=== PATIENT | female | born 1955 | race African-American/Black ===

== ENCOUNTER 2017-04-03 10:52 | Emergency (ER) | payer MEDICAID, OTHER ==
[~2017-04-03] VITALS: Ht 170.2 cm; Wt 121.5 kg
[~2017-04-03 10:52] MED LIST: ACET1TAB12 PO; GLIM2TAB2 PO; HYDR25TA PO; LISI-652 PO; METF500T4 PO; METO-298 PO; SIMV40TA2 PO; [UNRECOGNIZED DRUG - CODE] PO
[2017-04-03] MEDS ORDERED: KETOROLAC 30MG/ML VIAL IV STA (11:27)
[2017-04-03] MEDS ORDERED: SODIUM CHLORIDE 0.9% 1,000 ML IV ONE (11:27)
[2017-04-03 11:45] LABS: BASOPHILS % 0.4 % (0.0-2.0); EOSINOPHILS % 1.9 % (0.0-5.0); HEMATOCRIT. 32.5 % (36.0-48.0); HEMOGLOBIN. 10.5 g/dL (12.0-16.0); LYMPHOCYTES % 32.4 % (20.0-50.0); MEAN CORPUSCULAR HEMOGLOBIN 28.6 pg (28.0-32.0); MEAN CORPUSCULAR VOLUME 88.6 fL (81.0-99.0); MEAN PLATELET VOLUME 9.6 fl (7.4-10.4); MONOCYTES % 6.6 % (2.0-8.0); NEUTROPHILS % 58.7 % (40.0-76.0); PLATELET 152 x1000/uL (130-400); RED BLOOD CELL COUNT 3.66 mill/uL (4.2-5.4)
[2017-04-03 11:48] LABS: CHLORIDE 102 mEq/L (98-107)
[2017-04-03 11:51] LABS: INR 1.1; PROTHROMBIN TIME 11.3 sec
[2017-04-03 11:57] LABS: CARBON DIOXIDE 25 mEq/L (21-32)
[2017-04-03 13:24] LABS: CLARITY URINE CLEAR (CLEAR); COLOR URINE YELLOW (YELLOW); GLUCOSE URINE 2+ (NEGATIVE); KETONES URINE NEGATIVE (NEGATIVE); LEUKOCYTE ESTERASE URINE NEGATIVE (NEGATIVE); NITRITE URINE NEGATIVE (NEGATIVE); OCCULT BLOOD URINE NEGATIVE (NEGATIVE); PH URINE 5.5 (4.5-8.0); PROTEIN URINE NEGATIVE (NEGATIVE); SPECIFIC GRAVITY URINE 1.023 (1.005-1.030); UROBILINOGEN URINE 0.2 E.U./dL (0.2-1.0)
[2017-04-03 15:00] VITALS: BP 132/80
== END 2017-04-03 15:24 | disposition home or self-care (01) ==
LOC: ER 12:58
DX: R10.31 Right lower quadrant pain (principal); K76.0 Fatty (change of) liver, not elsewhere classified; K57.90 Diverticulosis of intestine, part unspecified, without perforation or abscess without bleeding; E11.9 Type 2 diabetes mellitus without complications; I10 Essential (primary) hypertension; Z87.828 Personal history of other (healed) physical injury and trauma
CPT/HCPCS: 36415; 74176; 80053; 81001; 83690; 85025; 85610; 96361; 96374; 99285; J1885; J7030

== ENCOUNTER 2017-05-04 13:43 | Inpatient (IN) | payer OTHER ==
[~2017-05-04] VITALS: Ht 170.2 cm; Wt 121.1 kg
[~2017-05-04 13:43] MED LIST changes: -METO-298 PO; +METO-385 PO
[2017-05-04] MEDS ORDERED: SODIUM CHLORIDE 0.9% 10ML VIAL ONE (13:56)
[2017-05-04] MEDS ORDERED: IOHEXOL-300 100 ML BOTTLE ONE (13:56)
[2017-05-04] MEDS ORDERED: ONDANSETRON HCL 4MG/2ML VIAL IV STA (18:58)
[2017-05-04] MEDS ORDERED: MORPHINE SULFATE 4 MG/ML CPJ (NOT FOR IM USE) IV STA (18:58)
[2017-05-04] MEDS ORDERED: SODIUM CHLORIDE 0.9% 1,000 ML IV ONE ×2 (18:58→21:16)
[2017-05-04 19:15] LABS: BASOPHILS % 0.3 % (0.0-2.0); HEMATOCRIT. 31.7 % (36.0-48.0); HEMOGLOBIN. 10.4 g/dL (12.0-16.0); LYMPHOCYTES % 8.8 % (20.0-50.0); MEAN CORPUSCULAR HEMOGLOBIN 28.8 pg (28.0-32.0); MEAN CORPUSCULAR VOLUME 87.5 fL (81.0-99.0); MEAN PLATELET VOLUME 9.5 fl (7.4-10.4); MONOCYTES % 5.3 % (2.0-8.0); NEUTROPHILS % 85.6 % (40.0-76.0); PLATELET 122 x1000/uL (130-400); RED BLOOD CELL COUNT 3.62 mill/uL (4.2-5.4)
[2017-05-04 19:19] LABS: INR 1.2
[2017-05-04 19:27] LABS: CARBON DIOXIDE 24 mEq/L (21-32); CHLORIDE 97 mEq/L (98-107)
[2017-05-04] MEDS ORDERED: ACETAMINOPHEN 325MG TABLET PO ONE (19:30)
[2017-05-04 20:52] LABS: CLARITY URINE CLEAR (CLEAR); COLOR URINE YELLOW (YELLOW); GLUCOSE URINE 2+ (NEGATIVE); KETONES URINE 1+ (NEGATIVE); LEUKOCYTE ESTERASE URINE NEGATIVE (NEGATIVE); NITRITE URINE NEGATIVE (NEGATIVE); OCCULT BLOOD URINE 1+ (NEGATIVE); PH URINE 5.5 (4.5-8.0); PROTEIN URINE 1+ (NEGATIVE); SPECIFIC GRAVITY URINE 1.021 (1.005-1.030); UROBILINOGEN URINE 0.2 E.U./dL (0.2-1.0)
[2017-05-04] MEDS ORDERED: HYDROCODONE/ACETAMINOPHEN 5/325MG TABLET PO ONE (21:15)
[2017-05-05] MEDS ORDERED: KETOROLAC 30MG/ML VIAL IV ONE
[2017-05-05] MEDS ORDERED: SODIUM CHLORIDE 0.9% 1,000 ML IV ONE ×2 (00:07→01:17)
[2017-05-05] MEDS ORDERED: METRONIDAZOLE 500 MG PREMIX 100 ML IV ONE (00:15)
[2017-05-05] MEDS ORDERED: PIPERACILLIN/TAZ 3.375G PREMIX 50 ML IV ONE (00:15)
[2017-05-05 05:00] VITALS: BP 136/82
[2017-05-05] MEDS ORDERED: CEFTRIAXONE SODIUM 1 G/VIAL IV SCH (05:00)
[2017-05-05] MEDS: SODIUM CHLORIDE 0.9% 1,000 ML IV SCH ×2 (06:55→23:06)
[2017-05-05] MEDS: CEFTRIAXONE 1 G PREMIX 50 ML IV SCH (06:55)
[2017-05-05 08:00] VITALS: BP 101/73
[2017-05-05] MEDS: METRONIDAZOLE 500 MG PREMIX 100 ML IV SCH ×2 (10:31→17:58)
[2017-05-05 12:00] VITALS: BP 103/73
[2017-05-05] MEDS ORDERED: DEXTROSE 50% WATER 50ML SYRINGE IV PRN (12:00)
[2017-05-05] MEDS ORDERED: DIPHENHYDRAMINE 50MG/ML VIAL IV PRN (12:00)
[2017-05-05] MEDS ORDERED: IPRATROPIUM/ALBUTEROL 0.5-3(2.5)MG/3ML NEB INH PRN (12:00)
[2017-05-05] MEDS ORDERED: MORPHINE SULFATE 2 MG/ML CPJ (NOT FOR IM USE) IV PRN (12:00)
[2017-05-05] MEDS ORDERED: ONDANSETRON HCL 4MG/2ML VIAL IV PRN (12:00)
[2017-05-05] MEDS: BLOOD SUGAR DIAGNOSTIC STRIP TEST SCH ×3 (13:10→20:02)
[2017-05-05] MEDS: INSULIN LISPRO 100 UNITS/ML SUBCUT SCH ×3 (13:22→23:20)
[2017-05-05] MEDS: HYDROCODONE/ACETAMINOPHEN 5/325MG TABLET PO PRN ×2 (13:25→20:02)
[2017-05-05 16:00] VITALS: BP 105/76
[2017-05-05] MEDS: ACETAMINOPHEN 325MG TABLET PO PRN (17:58)
[2017-05-05] MEDS: MORPHINE SULFATE 4 MG/ML CPJ (NOT FOR IM USE) IV PRN ×2 (17:59→23:09)
[2017-05-05 20:00] VITALS: BP 111/72
[2017-05-06] VITALS: BP 112/81
[2017-05-06] MEDS: HYDROCODONE/ACETAMINOPHEN 5/325MG TABLET PO PRN ×3 (01:34→14:01)
[2017-05-06] MEDS: METRONIDAZOLE 500 MG PREMIX 100 ML IV SCH ×3 (01:41→17:57)
[2017-05-06 04:00] VITALS: BP 106/70
[2017-05-06] MEDS: MORPHINE SULFATE 4 MG/ML CPJ (NOT FOR IM USE) IV PRN ×3 (05:46→22:04)
[2017-05-06 06:42] LABS: BASOPHILS % 0.2 % (0.0-2.0); EOSINOPHILS % 0.1 % (0.0-5.0); HEMOGLOBIN. 8.7 g/dL (12.0-16.0); LYMPHOCYTES % 13.2 % (20.0-50.0); MEAN CORPUSCULAR HEMOGLOBIN 28.7 pg (28.0-32.0); MEAN CORPUSCULAR VOLUME 88.8 fL (81.0-99.0); MONOCYTES % 10.5 % (2.0-8.0); PLATELET 98 x1000/uL (130-400); RED BLOOD CELL COUNT 3.04 mill/uL (4.2-5.4); RED CELL DISTRIBUTION WIDTH 16.3 % (11.6-14.6)
[2017-05-06 07:00] LABS: CARBON DIOXIDE 24 mEq/L (21-32); CHLORIDE 104 mEq/L (98-107); HDL CHOLESTEROL 38 mg/dL (40-59); LDL CHOLESTEROL 43 mg/dL (5-100)
[2017-05-06] MEDS: CEFTRIAXONE 1 G PREMIX 50 ML IV SCH (07:28)
[2017-05-06] MEDS: BLOOD SUGAR DIAGNOSTIC STRIP TEST SCH ×4 (07:35→20:07)
[2017-05-06 08:00] VITALS: BP 111/80
[2017-05-06] MEDS: INSULIN LISPRO 100 UNITS/ML SUBCUT SCH ×4 (08:32→21:00)
[2017-05-06 12:00] VITALS: BP 112/80
[2017-05-06] MEDS ORDERED: VANCOMYCIN 2,000 MG in DEXT 5% WATER 500 ML IV SCH (13:00)
[2017-05-06 16:00] VITALS: BP 127/86
[2017-05-06 20:00] VITALS: BP 130/94
[2017-05-06] MEDS: ACETAMINOPHEN 325MG TABLET PO PRN (20:03)
[2017-05-07] VITALS (7 sets, daily range): BP systolic 122–145; BP diastolic 73–87
[2017-05-07] MEDS: METRONIDAZOLE 500 MG PREMIX 100 ML IV SCH ×2 (02:31→09:15)
[2017-05-07] MEDS: MORPHINE SULFATE 4 MG/ML CPJ (NOT FOR IM USE) IV PRN ×5 (02:39→21:29)
[2017-05-07] MEDS: HYDROCODONE/ACETAMINOPHEN 5/325MG TABLET PO PRN ×2 (05:58→23:41)
[2017-05-07] MEDS ORDERED: VANCOMYCIN 1500MG in DEXTROSE 5% WATER 250ML IV SCH (06:00)
[2017-05-07] MEDS: BLOOD SUGAR DIAGNOSTIC STRIP TEST SCH ×4 (06:09→21:33)
[2017-05-07] MEDS: SODIUM CHLORIDE 0.9% 1,000 ML IV SCH (06:13)
[2017-05-07 07:03] LABS: BASOPHILS % 0.2 % (0.0-2.0); EOSINOPHILS % 0.4 % (0.0-5.0); HEMATOCRIT. 27.7 % (36.0-48.0); HEMOGLOBIN. 9.2 g/dL (12.0-16.0); LYMPHOCYTES % 10.9 % (20.0-50.0); MEAN CORPUSCULAR HEMOGLOBIN 28.8 pg (28.0-32.0); MEAN CORPUSCULAR VOLUME 87.1 fL (81.0-99.0); MEAN PLATELET VOLUME 10.2 fl (7.4-10.4); MONOCYTES % 8.8 % (2.0-8.0); NEUTROPHILS % 79.7 % (40.0-76.0); PLATELET 117 x1000/uL (130-400); RED BLOOD CELL COUNT 3.19 mill/uL (4.2-5.4); RED CELL DISTRIBUTION WIDTH 16.4 % (11.6-14.6)
[2017-05-07 08:16] LABS: CARBON DIOXIDE 24 mEq/L (21-32); CHLORIDE 102 mEq/L (98-107)
[2017-05-07] MEDS: INSULIN LISPRO 100 UNITS/ML SUBCUT SCH ×4 (09:15→23:43)
[2017-05-07] MEDS: CEFTRIAXONE 1 G PREMIX 50 ML IV SCH (09:16)
[2017-05-07] MEDS: METRONIDAZOLE 500MG TABLET PO SCH ×2 (15:19→21:20)
[2017-05-07] MEDS: CEFTRIAXONE 2 G PREMIX 50 ML IV SCH (15:19)
[2017-05-08] VITALS: BP 119/80
[2017-05-08] MEDS: MORPHINE SULFATE 4 MG/ML CPJ (NOT FOR IM USE) IV PRN ×4 (03:39→20:53)
[2017-05-08 04:00] VITALS: BP 151/82
[2017-05-08] MEDS: METRONIDAZOLE 500MG TABLET PO SCH ×3 (06:27→20:47)
[2017-05-08] MEDS: SODIUM CHLORIDE 0.9% 1,000 ML IV SCH ×2 (06:30→18:12)
[2017-05-08] MEDS: BLOOD SUGAR DIAGNOSTIC STRIP TEST SCH ×4 (06:48→20:57)
[2017-05-08 07:00] LABS: BASOPHILS % 0.5 % (0.0-2.0); EOSINOPHILS % 0.4 % (0.0-5.0); HEMATOCRIT. 27.2 % (36.0-48.0); HEMOGLOBIN. 8.9 g/dL (12.0-16.0); LYMPHOCYTES % 14.2 % (20.0-50.0); MEAN CORPUSCULAR HEMOGLOBIN 28.9 pg (28.0-32.0); MEAN CORPUSCULAR VOLUME 87.8 fL (81.0-99.0); MEAN PLATELET VOLUME 10.1 fl (7.4-10.4); MONOCYTES % 11.1 % (2.0-8.0); NEUTROPHILS % 73.8 % (40.0-76.0); PLATELET 147 x1000/uL (130-400); RED CELL DISTRIBUTION WIDTH 16.3 % (11.6-14.6)
[2017-05-08 07:35] LABS: CARBON DIOXIDE 27 mEq/L (21-32); CHLORIDE 102 mEq/L (98-107)
[2017-05-08 08:00] VITALS: BP 154/97
[2017-05-08] MEDS: INSULIN LISPRO 100 UNITS/ML SUBCUT SCH ×3 (08:34→18:46)
[2017-05-08] MEDS: CEFTRIAXONE 2 G PREMIX 50 ML IV SCH (09:05)
[2017-05-08] MEDS: CLONIDINE 0.1MG TABLET PO PRN (09:11)
[2017-05-08] MEDS ORDERED: POTASSIUM CHLORIDE 20MEQ TABLET SR PO SCH (11:15)
[2017-05-08] MEDS: HYDROCODONE/ACETAMINOPHEN 5/325MG TABLET PO PRN (11:25)
[2017-05-08 12:00] VITALS: BP 142/81
[2017-05-08 16:00] VITALS: BP 129/90
[2017-05-08 20:00] VITALS: BP 142/94
[2017-05-09] VITALS: BP_SYST 112; BP_SYST 156; BP_DIAS 61; BP_DIAS 74
[2017-05-09] MEDS: INSULIN LISPRO 100 UNITS/ML SUBCUT SCH ×5 (00:02→22:38)
[2017-05-09] MEDS: HYDROCODONE/ACETAMINOPHEN 5/325MG TABLET PO PRN ×5 (01:23→22:30)
[2017-05-09] MEDS: MORPHINE SULFATE 4 MG/ML CPJ (NOT FOR IM USE) IV PRN ×3 (03:58→20:10)
[2017-05-09 04:00] VITALS: BP 151/93
[2017-05-09] MEDS: METRONIDAZOLE 500MG TABLET PO SCH ×3 (06:56→22:30)
[2017-05-09] MEDS: BLOOD SUGAR DIAGNOSTIC STRIP TEST SCH ×4 (07:06→21:00)
[2017-05-09] MEDS: CEFTRIAXONE 2 G PREMIX 50 ML IV SCH (08:31)
[2017-05-09 16:00] VITALS: BP 150/98
[2017-05-09] MEDS: SODIUM CHLORIDE 0.9% 1,000 ML IV SCH (16:51)
[2017-05-09 20:00] VITALS: BP 166/89
[2017-05-10] VITALS: BP 179/98
[2017-05-10] MEDS: CLONIDINE 0.1MG TABLET PO PRN (01:36)
[2017-05-10] MEDS: MORPHINE SULFATE 4 MG/ML CPJ (NOT FOR IM USE) IV PRN ×2 (01:37→06:01)
[2017-05-10 04:00] VITALS: BP 176/94
[2017-05-10] MEDS: SODIUM CHLORIDE 0.9% 1,000 ML IV SCH (04:22)
[2017-05-10] MEDS: HYDROCODONE/ACETAMINOPHEN 5/325MG TABLET PO PRN ×4 (04:27→21:27)
[2017-05-10] MEDS: BLOOD SUGAR DIAGNOSTIC STRIP TEST SCH ×4 (06:01→21:00)
[2017-05-10] MEDS: METRONIDAZOLE 500MG TABLET PO SCH ×3 (06:01→21:27)
[2017-05-10 07:11] LABS: BASOPHILS % 0.3 % (0.0-2.0); EOSINOPHILS % 0.7 % (0.0-5.0); HEMATOCRIT. 28.6 % (36.0-48.0); HEMOGLOBIN. 9.4 g/dL (12.0-16.0); MEAN CORPUSCULAR HEMOGLOBIN 28.9 pg (28.0-32.0); MEAN CORPUSCULAR VOLUME 87.6 fL (81.0-99.0); MEAN PLATELET VOLUME 9.5 fl (7.4-10.4); MONOCYTES % 9.5 % (2.0-8.0); NEUTROPHILS % 72.5 % (40.0-76.0); PLATELET 208 x1000/uL (130-400); RED BLOOD CELL COUNT 3.26 mill/uL (4.2-5.4); RED CELL DISTRIBUTION WIDTH 16.2 % (11.6-14.6)
[2017-05-10 07:38] LABS: CARBON DIOXIDE 30 mEq/L (21-32); CHLORIDE 99 mEq/L (98-107)
[2017-05-10 08:00] VITALS: BP 175/92
[2017-05-10] MEDS: INSULIN LISPRO 100 UNITS/ML SUBCUT SCH ×5 (08:23→21:35)
[2017-05-10] MEDS: CEFTRIAXONE 2 G PREMIX 50 ML IV SCH ×2 (09:00→09:50)
[2017-05-10 12:00] VITALS: BP 177/92
[2017-05-10] MEDS ORDERED: DEXTROSE 50% WATER 50ML SYRINGE IV PRN (12:30)
[2017-05-10] MEDS ORDERED: MORPHINE SULFATE 4 MG/ML CPJ (NOT FOR IM USE) IV PRN (12:30)
[2017-05-10 16:00] VITALS: BP 140/79
[2017-05-10 20:00] VITALS: BP 124/73
[2017-05-10] MEDS ORDERED: POTASSIUM CHLORIDE 20MEQ TABLET SR PO NR (20:00)
[2017-05-11] VITALS: BP 132/87
[2017-05-11] MEDS: HYDROCODONE/ACETAMINOPHEN 5/325MG TABLET PO PRN ×2 (01:24→05:52)
[2017-05-11 04:00] VITALS: BP 177/89
[2017-05-11] MEDS: METRONIDAZOLE 500MG TABLET PO SCH (05:50)
[2017-05-11] MEDS: CLONIDINE 0.1MG TABLET PO PRN ×2 (05:53→12:22)
[2017-05-11] MEDS: BLOOD SUGAR DIAGNOSTIC STRIP TEST SCH ×2 (06:10→12:20)
[2017-05-11] MEDS: INSULIN LISPRO 100 UNITS/ML SUBCUT SCH ×2 (07:50→12:50)
[2017-05-11 08:00] VITALS: BP 160/87
[2017-05-11] MEDS ORDERED: CEFTRIAXONE 2 G in DEXTROSE 5% WATER 50 ML IV SCH (09:00)
[2017-05-11 11:34] VITALS: BP 155/85
[2017-05-11 12:00] VITALS: BP 155/87
== END 2017-05-11 13:10 | disposition home or self-care (01) | DRG 720 ==
LOC: ER 23:39 → 6EST 05-05 01:36 → ENRESERV 05-05 02:32 → 6EST 05-05 11:26
PROVIDERS: ADMIT Internal Medicine; ATTEND Internal Medicine
DX: A40.3 Sepsis due to Streptococcus pneumoniae (principal); E87.2 Acidosis; E11.65 Type 2 diabetes mellitus with hyperglycemia; I10 Essential (primary) hypertension; D64.9 Anemia, unspecified; E66.01 Morbid (severe) obesity due to excess calories; R93.8 Abnormal findings on diagnostic imaging of other specified body structures; E78.5 Hyperlipidemia, unspecified; K57.90 Diverticulosis of intestine, part unspecified, without perforation or abscess without bleeding; Z79.84 Long term (current) use of oral hypoglycemic drugs; Z79.899 Other long term (current) drug therapy; Z68.41 Body mass index [BMI] 40.0-44.9, adult; E87.1 Hypo-osmolality and hyponatremia; E44.1 Mild protein-calorie malnutrition
CPT/HCPCS: 36415; 71250; 72131; 74177; 76830; 76856; 80048; 80053; 80061; 81001; 82270; 82962; 83036; 83605; 83690; 85025; 85610; 87015; 87040; 87045; 87077; 87086; 87186; 87427; 87449; 93970; 96365; 96375; 97116; 97162; 97530; 99285; A4216; C1893; J0696; J1815; J1885; J2270; J2405; J2543; J3370; J3490; J7030; J7060; Q9967